=== PATIENT | female | born 1975 | race Two or more races ===

== ENCOUNTER 2016-08-27 06:27 | Observation (INO) | payer MEDICAID ==
[~2016-08-27] VITALS: Ht 160 cm; Wt 94.0 kg
--- NOTE | ~2016-08-27 | HP ---
PATIENT'S NAME: KHAI NASSAR [facility] AGE: 40 Y [address] ROOM: [place] [id number] LOCATION: [facility] ADMIT DATE: 08/27/2016 History & Physical DISCHARGE DATE: 08/27/2016 FAMILY PHYSICIAN: Hernan Price MD ATTENDING PHYSICIAN: Hernan Price DATE OF SERVICE: CHIEF COMPLAINT: Headache. HISTORY OF PRESENT ILLNESS: The patient is a 40-year-old female who is well-known to Labor and Delivery, who came in with complaints of a headache. She says she really had not taken much of an extra-strength Tylenol for this and really did not make a big difference. She has had no other complications with her to this point. Past medical history, social history, family history, all reviewed per [facility]. PHYSICAL EXAMINATION: HEENT: Benign. HEART: Regular rate and rhythm. LUNGS: Clear. ABDOMEN: Benign. LABORATORY DATA: White cell count is 11.3, hemoglobin 12.3, hematocrit 36.2%. CMS is relatively normal. Sodium 142, potassium 3.7, chloride 112, CO2 19, glucose 79, BUN 4, creatinine 0.4. LFTs are normal. Her urine does not show any protein at all. ASSESSMENT: Headache. PLAN: We did go ahead and give her a dose of Tylenol with Codeine and that really seemed to tamper things and calm things down. She was awaiting to be discharged at that time. She will have a close followup with Dr. Price tomorrow. She voiced understanding of that plan. CAROL ANN MUNGUIA MD [facility]GE[facility] 40 Y [address] ROOM: [place] [id number] LOCATION: [facility] ADMIT DATE: 08/27/2016 History & Physical DISCHARGE DATE: 08/27/2016 FAMILY PHYSICIAN: Hernan Price MD ATTENDING PHYSICIAN: Hernan Price TAB/modl /[id number]: [id number] T: [id number] HISTORY & PHYSICAL
[~2016-08-27 06:27] MED LIST: MOTRIN600 MG PO
[2016-08-27 07:42] LABS: BILIRUBIN URINE NEGATIVE (NEGATIVE); BLOOD URINE NEGATIVE /UL (NEGATIVE); COLOR URINE YELLOW (YELLOW); GLUCOSE URINE NEGATIVE (NEGATIVE); KETONE URINE NEGATIVE (NEGATIVE); LEUKOCYTES URINE 25 /UL (NEGATIVE); NITRITE URINE NEGATIVE (NEGATIVE); PH URINE 6.5 (4.0-8.0); PROTEIN URINE NEGATIVE (NEGATIVE); TURBIDITY URINE CLEAR (CLEAR); UROBILINOGEN URINE NORMAL (NORMAL)
[2016-08-27 07:53] LABS: BACTERIA URINE NEGATIVE (NEGATIVE); EPITHELIAL URINE NEGATIVE #/HPF (NEGATIVE); RBC URINE NEGATIVE #/HPF (NEGATIVE); WBC URINE RARE #/HPF (NEGATIVE)
[2016-08-27] MEDS ORDERED: ACETAMINOPHEN325 MG PO (08:34)
[2016-08-27] MEDS ORDERED: PRENATAL 1+1)(P1 TAB PO (08:36)
[2016-08-27] MEDS ORDERED: CEFTIN500 MG PO (08:36)
[2016-08-27] MEDS ORDERED: LEVOTHROID(SYN75 MCG PO (08:36)
[2016-08-27] MEDS ORDERED: ZYRTEC10 M3 PO (08:38)
[2016-08-27] MEDS ORDERED: ADVAIR 500-501 EACH INH (08:38)
[2016-08-27] MEDS ORDERED: FEOSOL325 MG PO (08:40)
[2016-08-27] MEDS ORDERED: PROAIR HFA8.5 GM INH (08:40)
[2016-08-27 09:41] LABS: BASOPHIL # 0.1 K/uL (0.0-0.2); BASOPHIL % 0.5 %; EOSINOPHIL # 0.1 K/uL (0.0-0.5); EOSINOPHIL % 1.1 %; HEMATOCRIT 36.2 % (33.0-46.0); HEMOGLOBIN 12.3 g/dL (10.0-15.0); IMMATURE GRANULOCYTE # 0.3 K/uL (0.0-0.3); IMMATURE GRANULOCYTE % 2.4 %; LYMPHOCYTE # 2.3 K/uL (0.8-4.0); LYMPHOCYTE % 20.2 %; MCH 31.1 pg (27.0-34.0); MCV 91.4 fl (83.0-98.0); MONOCYTE # 0.7 K/uL (0.0-1.0); MONOCYTE % 6.3 %; MPV 10.9 fl (9.4-12.4); NEUTROPHIL # (ANC) 7.9 K/uL (1.8-7.8); NEUTROPHIL % 69.5 %; NRBC % 0 /100WBC (0-0.00); PLATELET COUNT 259 K/uL (150-450); RBC 3.96 M/uL (3.50-5.50); RDW-CV 13.2 % (11.9-14.6); WBC 11.3 K/uL (4.0-11.0)
[2016-08-27 09:50] LABS: ALBUMIN 2.6 gm/dL (3.5-5.0); ALK PHOS 106 IU/L (33-138); ALT 35 IU/L (12-78); ANION GAP 14.7 (10.0-19.0); AST 23 IU/L (10-40); BLOOD UREA NITROGEN 4 mg/dL (6-24); CALCIUM 8.1 mg/dL (8.5-10.5); CHLORIDE 112 mMol/L (96-110); CO2 19 mMol/L (22-32); CREATININE 0.4 mg/dL (0.5-1.1); ESTIMATED GFR (MDRD EQUATION) > 60; POTASSIUM 3.7 mMol/L (3.7-5.1); SODIUM 142 mMol/L (135-145); TOTAL BILIRUBIN 0.3 mg/dL (0.0-1.5); TOTAL PROTEIN 6.1 g/dL (6.0-8.4)
== END 2016-08-27 12:45 | disposition disaster alternative care site (69) ==
LOC: GOBS 06:27 → GOBM 06:27 → GOBS 06:28 → GOBM 12:45 → GOBS 12:45
PROVIDERS: Family Medicine; ADMIT Family Medicine
DX: O99.89 Other specified diseases and conditions complicating pregnancy, childbirth and the puerperium (principal); R51 Headache; Z3A.31 31 weeks gestation of pregnancy
CPT/HCPCS: G0463